=== PATIENT | male | born 1945 | race Caucasian/White ===

== ENCOUNTER 2019-01-18 09:31 | Emergency (ER) | payer OTHER ==
[~2019-01-18] VITALS: Ht 154.9 cm; Wt 68.9 kg
[2019-01-18 09:47] VITALS: BP 129/62
[2019-01-18 11:09] VITALS: BP 129/62
== END 2019-01-18 11:10 | disposition home or self-care (01) ==
LOC: MED 09:31
DX: G51.0 Bell's palsy (principal); E78.00 Pure hypercholesterolemia, unspecified; Z90.49 Acquired absence of other specified parts of digestive tract
CPT/HCPCS: 99283